=== PATIENT | male | born 1975 | race Caucasian/White ===

== ENCOUNTER 2022-08-23 16:29 | Emergency (ER) | payer MEDICAID ==
[~2022-08-23] VITALS: Ht 195.6 cm; Wt 90.0 kg
[2022-08-23] MEDS ORDERED: AMOX-277 PO (18:40)
[2022-08-23] MEDS ORDERED: ACET-1158 PO (18:40)
[2022-08-23 18:51] VITALS: BP 118/83
== END 2022-08-23 19:02 | disposition home or self-care (01) ==
LOC: ER 16:37
DX: H66.93 Otitis media, unspecified, bilateral (principal); J01.90 Acute sinusitis, unspecified; Z79.2 Long term (current) use of antibiotics; Z79.899 Other long term (current) drug therapy